=== PATIENT | female | born 1975 | race Caucasian/White ===

== ENCOUNTER 2016-08-23 08:37 | Emergency (ER) | payer OTHER ==
[~2016-08-23] VITALS: Ht 167.6 cm; Wt 79.5 kg
[~2016-08-23 08:37] MED LIST: KLONOPIN 0.5MG0.5 MG PO; MOTRIN800 MG PO; NORCO 325 MG-51 TAB PO; PHENERGAN 25 TA25 MG PO; VICODIN 5/5001 UDTAB PO; ZOLOFT 100MG100 MG PO
[2016-08-23] MEDS ORDERED: EFFEXOR 50M50 MG/TAB PO (08:44)
[2016-08-23 10:36] VITALS: BP 115/71; PULSE 85
== END 2016-08-23 10:39 | disposition home or self-care (01) ==
LOC: COL.ER 08:37
DX: S52.501A Unspecified fracture of the lower end of right radius, initial encounter for closed fracture (principal); W01.198A Fall on same level from slipping, tripping and stumbling with subsequent striking against other object, initial encounter; Y92.009 Unspecified place in unspecified non-institutional (private) residence as the place of occurrence of the external cause